=== PATIENT | female | born 1950 | race Caucasian/White ===

== ENCOUNTER 2019-08-06 07:34 | Inpatient (IN) | payer MEDICARE ==
[~2019-08-06] VITALS: Ht 168.9 cm; Wt 90.0 kg
[~2019-08-06 07:34] MED LIST: ACET-1600 PO; GABA-827 PO; IBUP-1221 PO; TIOT18CA INH
[2019-08-06] MEDS ORDERED: LACTATED RINGERS 1,000 ML IV SCH (08:28)
[2019-08-06] MEDS ORDERED: EPINEPHRINE 1 MG/ML, 1ML ONE (08:41)
[2019-08-06] MEDS ORDERED: BUPIVACAINE/PF 0.5% ONE (08:41)
[2019-08-06] MEDS ORDERED: ISOSULFAN BLUE 10 MG/ML, 5ML IV ONE (08:41)
[2019-08-06] MEDS ORDERED: FENTANYL PF 250 MCG/5ML ONE (09:09)
[2019-08-06] MEDS ORDERED: MIDAZOLAM 1 MG/ML, 2ML ONE (09:09)
[2019-08-06] MEDS ORDERED: DEXAMETHASONE 4 MG/ML, 1ML ONE (09:33)
[2019-08-06] MEDS ORDERED: PROPOFOL 10 MG/ML, 20ML ONE (09:33)
[2019-08-06] MEDS ORDERED: ROCURONIUM 10MG/ML,5ML ONE (09:33)
[2019-08-06] MEDS ORDERED: SUCCINYLCHOLINE 20 MG/ML, 10ML ONE (09:33)
[2019-08-06] MEDS ORDERED: CEFAZOLIN 1,000 MG ONE (09:33)
[2019-08-06] MEDS ORDERED: ONDANSETRON 2MG/ML, 2ML ONE ×2 (09:33→11:58)
[2019-08-06] MEDS ORDERED: LABETALOL 5MG/ML, 20ML IV PRN (10:00)
[2019-08-06] MEDS ORDERED: METOCLOPRAMIDE 5 MG/ML, 2ML IV PRN (10:00)
[2019-08-06] MEDS ORDERED: hydrALAzine 20 MG/ML, 1ML IV PRN (10:00)
[2019-08-06] MEDS ORDERED: MEPERIDINE/PF 25MG/0.5ML IVPush PRN (10:00)
[2019-08-06] MEDS ORDERED: PROMETHAZINE 25 MG/ML, 1ML IV PRN (10:00)
[2019-08-06] MEDS ORDERED: KETOROLAC 30 MG/1 ML IV PRN (10:00)
[2019-08-06] MEDS ORDERED: OXYcodone 5 MG/5 ML ORAL.SOL UDC PO PRN (10:00)
[2019-08-06] MEDS ORDERED: ONDANSETRON 2MG/ML, 2ML IVPush PRN ×2 (10:00→11:30)
[2019-08-06] MEDS ORDERED: HYDROmorphone 1 MG/ML, 1ML INJ IV PRN (10:00)
[2019-08-06] MEDS ORDERED: ALBUTEROL SULFATE 2.5 MG/3 ML NPPB PRN (10:00)
[2019-08-06] MEDS: D5%-0.45NACL+KCL 20MEQ 1,000 ML IV SCH ×2 (11:24→16:07)
[2019-08-06] MEDS ORDERED: LABETALOL 5MG/ML, 20ML IVPush PRN (11:30)
[2019-08-06] MEDS ORDERED: ACETAMINOPHEN 325 MG TABLET PO PRN (11:30)
[2019-08-06] MEDS ORDERED: PROMETHAZINE 25 MG/ML, 1ML IM PRN (11:30)
[2019-08-06] MEDS ORDERED: MORPHINE SULFATE 4 MG/ML, 1ML IVPush PRN (11:30)
[2019-08-06] MEDS ORDERED: ENALAPRILAT 1.25 MG/ML, 2ML IVPush PRN (11:30)
[2019-08-06] MEDS ORDERED: OXYcodone 5 MG/5 ML ORAL.SOL UDC ONE (11:42)
[2019-08-06] MEDS ORDERED: FENTANYL PF 100 MCG/2ML ONE (11:42)
[2019-08-06] MEDS: FENTANYL PF 100 MCG/2ML IV PRN ×2 (11:44→11:53)
[2019-08-06] MEDS ORDERED: KETOROLAC 30 MG/1 ML ONE (11:57)
[2019-08-06] MEDS ORDERED: HYDROmorphone 1 MG/ML, 1ML VIAL ONE (11:57)
[2019-08-06] MEDS ORDERED: PROMETHAZINE 25 MG/ML, 1ML ONE (12:07)
[2019-08-06 13:33] VITALS: BP 147/85
[2019-08-06 18:50] VITALS: BP 121/74
[2019-08-06] MEDS: OXYcodone/APAP 7.5/325MG TABLET PO PRN (20:42)
[2019-08-07 00:28] VITALS: BP_SYST 106; BP_SYST 111; BP_DIAS 58; BP_DIAS 59
[2019-08-07] MEDS: OXYcodone/APAP 7.5/325MG TABLET PO PRN ×2 (04:34→10:24)
[2019-08-07 05:04] LABS: BASOPHILS # (AUTO) 0.03 x10^3/uL (0-0.1); BASOPHILS % (AUTO) 0 % (0-1); EOSINOPHILS # (AUTO) 0.12 x10^3/uL (0-0.4); EOSINOPHILS % (AUTO) 1 % (1-7); LYMPHOCYTES # (AUTO) 0.76 x10^3/uL (1-3.4); LYMPHOCYTES % (AUTO) 9 % (22-44); MD NO; MEAN CORPUSCULAR HEMOGLOBIN 31.5 pg (27.0-34.8); MEAN CORPUSCULAR HGB CONC 33.4 g/dL (32.4-35.8); MEAN CORPUSCULAR VOLUME 94.5 fL (80-100); MEAN PLATELET VOLUME 9.2 fL (7.4-10.4); MONOCYTES % (AUTO) 6 % (2-9); NEUTROPHILS # (AUTO) 7.29 x10^3/uL (1.8-6.8); NEUTROPHILS % (AUTO) 84 % (42-75); PLATELET COUNT 194 x10^3/uL (130-400); RED BLOOD COUNT 4.06 x10^6/uL (3.82-5.3); RED CELL DISTRIBUTION WIDTH 12.5 % (9.6-15.2)
[2019-08-07 06:44] VITALS: BP 116/62
[2019-08-07] MEDS: D5%-0.45NACL+KCL 20MEQ 1,000 ML IV SCH (07:08)
[2019-08-07] MEDS ORDERED: GABAPENTIN 400 MG CAPSULE PO SCH (09:00)
[2019-08-07] MEDS ORDERED: OXYC-306 PO (09:54)
[2019-08-07 12:18] VITALS: BP 124/76
== END 2019-08-07 13:16 | disposition home or self-care (01) | DRG 580 ==
LOC: SDC 07:34 → EDSTATUS 09:30 → ORIP 11:24 → 4NE 12:52 → DCLOUNGE 08-07 13:00
PROVIDERS: ADMIT Surgery; ATTEND Surgery
PROC: 07B50ZX Excision of Right Axillary Lymphatic, Open Approach, Diagnostic (ICD-10-PCS; 2019-08-06)
PROC: 0HTT0ZZ Resection of Right Breast, Open Approach (ICD-10-PCS; principal; 2019-08-06 09:30)
DX: C50.911 Malignant neoplasm of unspecified site of right female breast (principal); J96.10 Chronic respiratory failure, unspecified whether with hypoxia or hypercapnia; J43.9 Emphysema, unspecified
CPT/HCPCS: 36415; 38792; 85025; 88305; 88307; 88333; 88341; 88342; 93005; C1729; G0378; J0171; J0690; J1100; J1170; J1885; J2250; J2405; J2550; J2704; J3010; A9541; J0330; J3480; J7120